=== PATIENT | female | born 1995 | race Caucasian/White ===

== ENCOUNTER 2018-04-23 18:58 | Emergency (ER) | payer OTHER ==
--- NOTE | 2018-04-23 20:16 | ERPHSYRPT ---
- History of Present Illness Time Seen by Provider: 04/23/18 20:04 Historian: patient Exam Limitations: no limitations Patient Subjective Stated Complaint: Abdominal pain Triage Nursing Assessment: Patient ambulated back to ED and transferred self to bed. Patient A+O X 3. Patient's skin pink, warm and dry. Patient states she started having abdominal pain around 1300 that was constant and felt like bad cramps 6/10. Patient states she is also bloated. Patient denies diarrhea or vomiting, but is nauseaous at times. Abdomen round and distended with BS x4. Lungs noted to be clear a/p jordan. Heart tones WNL. Physician History: The patient is a 22-year-old female with her boyfriend complaining of right lower quadrant and periumbilical abdominal pain that began around 1 PM today. It feels like a constant cramping. About a 6 out of 10 pain. She finished her last menstrual period last week. She takes control pills but has not started taking them again after her last menstrual period. She has felt nauseated. She denies vomiting or diarrhea. She denies fever. She has taken 2 Advil to help ease the pain. Her past medical history is significant for depression. She denies any abdominal surgeries. Pt last ate at 2 PM. Timing/Duration: today, hour(s) (7), gradual onset, worse Activities at Onset: none Quality: cramping Abdominal Pain Onset Location: RLQ, periumbilical Pain Radiation: no radiation Severity of Pain-Max: moderate Severity of Pain-Current: moderate Modifying Factors: Improves With: analgesics Associated Symptoms: nausea, No diarrhea, No fever/chills, No heartburn, No vomiting, No weakness Previous symptoms: no prior history Allergies/Adverse Reactions: No Known Drug Allergies Allergy (Unverified 04/23/18 19:19) Home Medications: Citalopram Hydrobromide 20 mg* [ceLEXa 20 MG] 1 tab PO HS 04/23/18 [History] Hx Influenza Vaccination/Date Given: Yes Hx Pneumococcal Vaccination/Date Given: No Immunizations Up to Date: Yes - Review of Systems Constitutional: No Symptoms Eyes: No Symptoms Ears, Nose, & Throat: No Symptoms Respiratory: No Cough, No Dyspnea Cardiac: No Chest Pain, No Edema, No Syncope Abdominal/Gastrointestinal: Abdominal Pain, Nausea, No Vomiting, No Diarrhea Genitourinary Symptoms: No Dysuria Musculoskeletal: No Back Pain, No Neck Pain Skin: No Rash Neurological: No Dizziness, No Focal Weakness, No Sensory Changes Psychological: No Symptoms Endocrine: No Symptoms Hematologic/Lymphatic: No Symptoms Immunological/Allergic: No Symptoms All Other Systems: Reviewed and Negative - Past Medical History Pertinent Past Medical History: No Neurological History: No Pertinent History ENT History: No Pertinent History Cardiac History: No Pertinent History Respiratory History: No Pertinent History Endocrine Medical History: No Pertinent History Musculoskeletal History: No Pertinent History GI Medical History: No Pertinent History History: No Pertinent History Psycho-Social History: No Pertinent History Female Reproductive Disorders: No Pertinent History - Past Surgical History Past Surgical History: No Neuro Surgical History: No Pertinent History Cardiac: No Pertinent History Respiratory: No Pertinent History Gastrointestinal: No Pertinent History Genitourinary: No Pertinent History Musculoskeletal: No Pertinent History Female Surgical History: No Pertinent History - Social History Smoking Status: Current every day smoker How long have you smoked: 9 Exposure to second hand smoke: No Drug Use: none Patient Lives Alone: No - Female History Hx Last Menstrual Period: Ended last Hx Now: No - Nursing Vital Signs Nursing Vital Signs: Initial Vital Signs Temperature 97.9 F 04/23/18 19:06 Pulse Rate 82 04/23/18 19:06 Respiratory Rate 18 04/23/18 19:06 Blood Pressure 157/100 04/23/18 19:06 O2 Sat by Pulse Oximetry 100 04/23/18 19:06 Pain Scale Pain Intensity 4 - Physical Exam General Appearance: no apparent distress, alert Eye Exam: PERRL/EOMI, eyes nml inspection Ears, Nose, Throat Exam: normal ENT inspection, pharynx normal, moist mucous membranes Neck Exam: normal inspection, non-tender, supple, full range of motion Respiratory Exam: normal breath sounds, lungs clear, No respiratory distress Cardiovascular Exam: regular rate/rhythm, normal heart sounds Gastrointestinal/Abdomen Exam: tenderness (periumbical and RLQ) Pelvic Exam: not done Rectal Exam: not done Back Exam: normal inspection, normal range of motion, No CVA tenderness, No vertebral tenderness Extremity Exam: normal inspection, normal range of motion, pelvis stable Neurologic Exam: alert, oriented x 3, cooperative, normal mood/affect, nml cerebellar function, sensation nml, No motor deficits Skin Exam: normal color, warm, dry SpO2 Interpretation: normal SpO2: 100 O2 Delivery: Room Air - CT Exams Abdomen/Pelvis CT Interpretation: Tele-radiologist Report (per Dr Hicks), appendicitis ( prominent appendix with fat stranding) Ordered Tests: Active Orders 24 hr Category Date Time Status Clean Catch Urine Specimen STAT Care 04/23/18 20:20 Active IV Insertion STAT Care 04/23/18 20:20 Active ABDOMEN AND PELVIS W/0 CONTRAS [CT] Stat Exams 04/23/18 21:14 Taken CBC W DIFF Stat Lab 04/23/18 20:00 Completed CMP Stat Lab 04/23/18 20:00 Completed HCG QUALITATIVE,SERUM Stat Lab 04/23/18 20:00 Completed LIPASE Stat Lab 04/23/18 20:00 Completed Lactic Acid Stat Lab 04/23/18 20:38 Completed UA W/RFX UR CULTURE Stat Lab 04/23/18 19:45 Completed Urine Triage Profile Stat Lab 04/23/18 19:45 Completed Medication Summary Discontinued Medications Generic Name Dose Route Start Last Admin Trade Name Freq PRN Reason Stop Dose Admin Acetaminophen 975 mg 04/23/18 20:20 04/23/18 20:53 Tylenol 325 Mg PO 04/23/18 20:21 975 mg STAT ONE Administration Acetaminophen Confirm 04/23/18 20:44 Tylenol 325 Mg Administered 04/23/18 20:45 Dose 975 mg .ROUTE .STK-MED ONE Sodium Chloride 1,000 mls @ 999 mls/hr 04/23/18 20:20 04/23/18 20:49 Sodium Chloride 0.9% 1000 Ml IV 04/23/18 21:20 999 mls/hr .Q1H1M STA Administration Sodium Chloride Confirm 04/23/18 20:44 Sodium Chloride 0.9% 1000 Ml Administered 04/23/18 20:45 Dose 1,000 mls @ ud .ROUTE .STK-MED ONE Ondansetron HCl 4 mg 04/23/18 20:20 04/23/18 20:54 Zofran 4 Mg/2 Ml Vial IV 04/23/18 20:21 4 mg STAT ONE Administration Ondansetron HCl Confirm 04/23/18 20:44 Zofran 4 Mg/2 Ml Vial Administered 04/23/18 20:45 Dose 4 mg .ROUTE .STK-MED ONE Lab/Rad Data: Laboratory Result Diagrams 04/23/18 20:00 04/23/18 20:00 Laboratory Results 04/23/18 04/23/18 04/23/18 Range/Units 20:38 20:00 20:00 WBC (4.0-10.5) K/mm3 RBC (4.1-5.4) M/mm3 Hgb (12.0-16.0) gm/dl Hct (35-47) % MCV (78-100) fl MCH (26-32) pg MCHC (32-36) g/dl RDW (11.5-14.0) % Plt Count (150-450) K/mm3 MPV (6-9.5) fl Gran % (36.0-66.0) % Eos # (Auto) (0-0.5) Absolute Lymphs (auto) (1.0-4.6) Absolute Monos (auto) (0.0-1.3) Lymphocytes % (24.0-44.0) % Monocytes % (0.0-12.0) % Eosinophils % (0.00-5.0) % Basophils % (0.0-0.4) % Absolute Granulocytes (1.4-6.9) Basophils # (0-0.4) Sodium 140 (137-145) mmol/L Potassium 4.0 (3.5-5.1) mmol/L Chloride 103 (98-107) mmol/L Carbon Dioxide 28 (22-30) mmol/L Anion Gap 12.5 (5-15) MEQ/L BUN 9 (7-17) mg/dL Creatinine 0.65 (0.52-1.04) mg/dL Estimated GFR > 60.0 ML/MIN Glucose 95 (74-106) mg/dL Lactic Acid 0.8 (0.4-2.0) Calcium 10.2 (8.4-10.2) mg/dL Total Bilirubin 0.50 (0.2-1.3) mg/dL AST 39 H (14-36) U/L ALT 28 (0-35) U/L Alkaline Phosphatase 69 (38-126) U/L Serum Total Protein 7.7 (6.3-8.2) g/dL Albumin 4.6 (3.5-5.0) g/dL Lipase 94 (23-300) U/L Serum , Qual NEGATIVE (Negative) Urine Color (YELLOW) Urine Appearance (CLEAR) Urine pH (5-6) Ur Specific [place] (1.005-1.025) Urine Protein (Negative) Urine Ketones (NEGATIVE) Urine Blood (0-5) Lexa/ul Urine Nitrite (NEGATIVE) Urine Bilirubin (NEGATIVE) Urine Urobilinogen (0-1) mg/dL Ur Leukocyte Esterase (NEGATIVE) Urine WBC (Auto) (0-5) /HPF Urine RBC (Auto) (0-2) /HPF U Epithel Cells (Auto) (FEW) /HPF Urine Bacteria (Auto) (NEGATIVE) /HPF Other Casts (Auto) (NEGATIVE) /LPF Urine Mucus (Auto) (NEGATIVE) /HPF Urine Culture Reflexed (NO) Urine Glucose (NEGATIVE) mg/dL Urine Opiates Level (NEGATIVE) Ur Methadone (NEGATIVE) Urine Barbiturates (NEGATIVE) Ur Phencyclidine (PCP) (NEGATIVE) Urine Amphetamine (NEGATIVE) U Benzodiazepine Level (NEGATIVE) Urine Cocaine (NEGATIVE) Urine Marijuana (THC) (NEGATIVE) 04/23/18 04/23/18 04/23/18 Range/Units 20:00 19:45 19:45 WBC 14.5 H (4.0-10.5) K/mm3 RBC 4.06 L (4.1-5.4) M/mm3 Hgb 13.1 (12.0-16.0) gm/dl Hct 39.9 (35-47) % MCV 98.3 (78-100) fl MCH 32.2 H (26-32) pg MCHC 32.8 (32-36) g/dl RDW 12.0 (11.5-14.0) % Plt Count 216 (150-450) K/mm3 MPV 12.4 H (6-9.5) fl Gran % 77.3 H (36.0-66.0) % Eos # (Auto) 0.23 (0-0.5) Absolute Lymphs (auto) 2.38 (1.0-4.6) Absolute Monos (auto) 0.65 (0.0-1.3) Lymphocytes % 16.5 L (24.0-44.0) % Monocytes % 4.5 (0.0-12.0) % Eosinophils % 1.6 (0.00-5.0) % Basophils % 0.1 (0.0-0.4) % Absolute Granulocytes 11.17 H (1.4-6.9) Basophils # 0.02 (0-0.4) Sodium (137-145) mmol/L Potassium (3.5-5.1) mmol/L Chloride (98-107) mmol/L Carbon Dioxide (22-30) mmol/L Anion Gap (5-15) MEQ/L BUN (7-17) mg/dL Creatinine (0.52-1.04) mg/dL Estimated GFR ML/MIN Glucose (74-106) mg/dL Lactic Acid (0.4-2.0) Calcium (8.4-10.2) mg/dL Total Bilirubin (0.2-1.3) mg/dL AST (14-36) U/L ALT (0-35) U/L Alkaline Phosphatase (38-126) U/L Serum Total Protein (6.3-8.2) g/dL Albumin (3.5-5.0) g/dL Lipase (23-300) U/L Serum , Qual (Negative) Urine Color STRAW (YELLOW) Urine Appearance CLEAR (CLEAR) Urine pH 7.0 (5-6) Ur Specific [place] 1.005 (1.005-1.025) Urine Protein NEGATIVE (Negative) Urine Ketones NEGATIVE (NEGATIVE) Urine Blood NEGATIVE (0-5) Lexa/ul Urine Nitrite NEGATIVE (NEGATIVE) Urine Bilirubin NEGATIVE (NEGATIVE) Urine Urobilinogen NEGATIVE (0-1) mg/dL Ur Leukocyte Esterase NEGATIVE (NEGATIVE) Urine WBC (Auto) NONE (0-5) /HPF Urine RBC (Auto) NONE (0-2) /HPF U Epithel Cells (Auto) RARE (FEW) /HPF Urine Bacteria (Auto) FEW (NEGATIVE) /HPF Other Casts (Auto) NEGATIVE (NEGATIVE) /LPF Urine Mucus (Auto) SLIGHT (NEGATIVE) /HPF Urine Culture Reflexed NO (NO) Urine Glucose NEGATIVE (NEGATIVE) mg/dL Urine Opiates Level NEGATIVE (NEGATIVE) Ur Methadone NEGATIVE (NEGATIVE) Urine Barbiturates NEGATIVE (NEGATIVE) Ur Phencyclidine (PCP) NEGATIVE (NEGATIVE) Urine Amphetamine NEGATIVE (NEGATIVE) U Benzodiazepine Level NEGATIVE (NEGATIVE) Urine Cocaine NEGATIVE (NEGATIVE) Urine Marijuana (THC) NEGATIVE (NEGATIVE) - Progress Progress: improved Progress Note: 04/23/18 21:53 Pt wishes to be transferred to [facility] for appendectomy. 04/23/18 22:[address] De La Cruz at [facility] for acceptance. Counseled pt/family regarding: rad results - Departure Time of Disposition: 21:44 Departure Disposition: Transfer (transfer to [facility] ER per Dr De La Cruz) Clinical Impression: Acute appendicitis Condition: Stable Critical Care Time: No Referrals: BRANDIN MARTÍNEZ [Primary Care Provider] -
[2018-04-23] MEDS ORDERED: Zofran 4 MG/2 ML VIAL IV ONE (20:20)
[2018-04-23] MEDS ORDERED: TYLENOL 325 MG PO ONE (20:20)
[2018-04-23] MEDS ORDERED: Sodium Chloride 0.9% 1000 ML 1,000 ML IV STA (20:20)
[2018-04-23 20:34] LABS: BASOPHIL % 0.1 % (0.0-0.4); Basophil (Absolute #) 0.02 (0-0.4); Eosinophil % 1.6 % (0.00-5.0); Eosinophil (Absolute #) 0.23 (0-0.5); Granulocyte Absolute (ANC) 11.17 (1.4-6.9); Granulocytes % 77.3 % (36.0-66.0); Hematocrit 39.9 % (35-47); Hemoglobin 13.1 gm/dl (12.0-16.0); Lymphocyte (Absolute #) 2.38 (1.0-4.6); Lymphocytes % 16.5 % (24.0-44.0); Mean Cell Volume 98.3 fl (78-100); Mean Corpuscular Hgb Concent. 32.8 g/dl (32-36); Mean Platelet Volume 12.4 fl (6-9.5); Monocyte (Absolute #) 0.65 (0.0-1.3); Monocytes % 4.5 % (0.0-12.0); Platelet Count 216 K/mm3 (150-450); Red Blood Count 4.06 M/mm3 (4.1-5.4); White Blood Count 14.5 K/mm3 (4.0-10.5)
[2018-04-23 20:40] LABS: ALBUMIN 4.6 g/dL (3.5-5.0); ALKALINE PHOSPHATASE 69 U/L (38-126); ANION GAP 12.5 MEQ/L (5-15); BLOOD UREA NITROGEN 9 mg/dL (7-17); CHLORIDE 103 mmol/L (98-107); Calcium 10.2 mg/dL (8.4-10.2); Carbon Dioxide 28 mmol/L (22-30); Creatinine 1 0.65 mg/dL (0.52-1.04); Glucose 95 mg/dL (74-106); LIPASE 94 U/L (23-300); SGOT/AST 39 U/L (14-36); SGPT/ALT 28 U/L (0-35); SODIUM 140 mmol/L (137-145); Total Protein 7.7 g/dL (6.3-8.2)
[2018-04-23 20:42] LABS: Mean Corpuscular Hemoglobin 32.2 pg (26-32)
[2018-04-23] MEDS ORDERED: Sodium Chloride 0.9% 1000 ML 1,000 ML ONE ×2 (20:44→21:59)
[2018-04-23] MEDS ORDERED: TYLENOL 325 MG ONE (20:44)
[2018-04-23] MEDS ORDERED: Zofran 4 MG/2 ML VIAL ONE (20:44)
[2018-04-23 21:00] LABS: Appearance CLEAR (CLEAR); Bacteria FEW /HPF (NEGATIVE); Bilirubin NEGATIVE (NEGATIVE); Blood NEGATIVE Ery/ul (0-5); Epithelial Cells RARE /HPF (FEW); Glucose NEGATIVE (NEGATIVE); Ketones NEGATIVE (NEGATIVE); Leukocyte Esterase NEGATIVE (NEGATIVE); Mucus SLIGHT /HPF (NEGATIVE); Nitrite NEGATIVE (NEGATIVE); Protein,Urine Dip NEGATIVE (Negative); Specific Gravity 1.005 (1.005-1.025); Urobilinogen NEGATIVE mg/dL (0-1)
[2018-04-23 21:05] LABS: Amphetamine,Urine NEGATIVE (NEGATIVE); Barbiturate,Urine NEGATIVE (NEGATIVE); Benzodiazepine,Urine NEGATIVE (NEGATIVE); Cocaine,Urine NEGATIVE (NEGATIVE); Methadone,Urine NEGATIVE (NEGATIVE); Opiate,Urine NEGATIVE (NEGATIVE); PCP,Urine NEGATIVE (NEGATIVE); THC,Urine NEGATIVE (NEGATIVE)
[2018-04-23] MEDS ORDERED: TORAdol 30 mg Injection IV ONE (21:52)
[2018-04-23] MEDS ORDERED: Unasyn 1.5GM / NaCl 100ML 1.5 GM/100 ML IVPB IV STA (21:52)
[2018-04-23] MEDS ORDERED: Unasyn 1.5GM / NaCl 100ML 1.5 GM/100 ML IVPB ONE (21:59)
[2018-04-23] MEDS ORDERED: TORAdol 30 mg Injection ONE (21:59)
[2018-04-23] MEDS ORDERED: Sodium Chloride 0.9% 1000 ML 1,000 ML IV SCH (22:15)
[2018-04-23 22:39] VITALS: BP 133/91; PULSE 65; O2SAT 96
--- NOTE | 2018-04-24 09:08 | XRAY ---
Indication: Right lower quadrant pain. Elevated WBC. Multiple contiguous axial images obtained through the abdomen and pelvis without contrast as ordered. Comparison: None Lung bases demonstrates left base calcified granuloma. No infiltrate or effusion. Heart is not enlarged. Noncontrasted stomach and bowel loops appear nonobstructed. Appendix is prominent up to 10-11 mm with periappendiceal stranding consistent with acute appendicitis. No free fluid/air. Mild diffuse scattered colonic fecal debris throughout. Remaining liver, gallbladder, pancreas, spleen, adrenal glands, kidneys, ureters, bladder, uterus, and aorta appear unremarkable for noncontrast exam. Osseous structures intact. Impression: 1. CT findings favoring acute appendicitis. No complications. 2. Incidental fecal stasis. CTDI 9.17
== END 2018-04-23 22:50 | disposition short-term general hospital (02) ==
LOC: ED 18:58
DX: K35.80 Unspecified acute appendicitis (principal); F32.9 Major depressive disorder, single episode, unspecified; Z79.899 Other long term (current) drug therapy; R10.9 Unspecified abdominal pain; Z79.3 Long term (current) use of hormonal contraceptives; R10.31 Right lower quadrant pain; R11.0 Nausea; F17.200 Nicotine dependence, unspecified, uncomplicated
CPT/HCPCS: 36000; 36415; 74176; 80053; 80307; 81001; 81025; 83605; 83690; 85025; 96360; 96361; 96365; 96374; 96375; 99285; J0295; J1885; J2405; A9270-GY

== ENCOUNTER → 2019-04-05 | Emergency (ER) | payer BC, OTHER | END | disposition left against medical advice (07) | LOC: ED 18:15 | DX: Z53.9 Procedure and treatment not carried out, unspecified reason (principal) | CPT/HCPCS: 99281 ==

== ENCOUNTER 2022-05-10 23:17 | Emergency (ER) | payer OTHER ==
[2022-05-10] MEDS ORDERED: TORAdol 30 mg Injection IV ONE (23:42)
[2022-05-10] MEDS ORDERED: Zofran 4 MG/2 ML VIAL IV ONE (23:42)
[2022-05-10] MEDS ORDERED: Sodium Chloride 0.9% 1000 ML 1,000 ML IV STA (23:42)
[2022-05-10] MEDS ORDERED: MORPHINE SULFATE 2 MG INJ ONE (23:46)
[2022-05-10] MEDS ORDERED: TORAdol 30 mg Injection ONE (23:46)
[2022-05-10] MEDS ORDERED: Sodium Chloride 0.9% 1000 ML 1,000 ML ONE (23:46)
[2022-05-10] MEDS ORDERED: Zofran 4 MG/2 ML VIAL ONE (23:46)
--- NOTE | 2022-05-10 23:46 | ERPHSYRPT ---
- History of Present Illness Time Seen by Provider: 05/10/22 23:39 Source: patient Exam Limitations: no limitations Patient Subjective Stated Complaint: epigastric pain since 2129 Triage Nursing Assessment: pt ambulatory to bed by self, alert and oriented x3, skin pwd, pt c/o epigastric pain since about 2129, describes the pain as cramping, pt last ate at 1830, pt states she had greasy bar food and her pain started a couple hours after, denies nausea, pt states she "made" herself vomit to see if she would feel better, last BM was today Physician History: Patient here with abdominal pain starting earlier tonight. Patient states that she was out drinking and developed some epigastric pain after eating greasy food . No falls or trauma. Patient does not believe that she is . Patient states that she has already had her appendix out. All pain is epigastric, does not radiate. No nausea or vomiting. No fever no chills. No systemic signs of illness no other recent symptoms. Allergies/Adverse Reactions: No Known Drug Allergies Allergy (Verified 05/10/22 23:27) Home Medications: Citalopram Hydrobromide 20 mg* [ceLEXa 20 MG] 1 tab PO HS 04/23/18 [History] Hx Tetanus, Diphtheria Vaccination/Date Given: Yes Hx Influenza Vaccination/Date Given: No Hx Pneumococcal Vaccination/Date Given: No Immunizations Up to Date: Yes Travel Risk - International Travel Have you traveled outside of the country in past 3 weeks: No - Coronavirus Screening Are you exhibiting any of the following symptoms?: No Close contact with a COVID-19 positive Pt in past 14-21 Days: No - Vaccine Status Have you recieved a Covid-19 vaccination: No - Review of Systems Constitutional: No Fever, No Chills Eyes: No Symptoms Ears, Nose, & Throat: No Symptoms Respiratory: No Cough, No Dyspnea Cardiac: No Chest Pain, No Edema, No Syncope Abdominal/Gastrointestinal: Abdominal Pain, No Nausea, No Vomiting, No Diarrhea Genitourinary Symptoms: No Dysuria Musculoskeletal: No Back Pain, No Neck Pain Skin: No Rash Neurological: No Dizziness, No Focal Weakness, No Sensory Changes Psychological: No Symptoms Endocrine: No Symptoms All Other Systems: Reviewed and Negative - Past Medical History Pertinent Past Medical History: No Neurological History: No Pertinent History ENT History: No Pertinent History Cardiac History: No Pertinent History Respiratory History: No Pertinent History Endocrine Medical History: No Pertinent History Musculoskeletal History: No Pertinent History GI Medical History: No Pertinent History History: No Pertinent History Psycho-Social History: No Pertinent History Female Reproductive Disorders: No Pertinent History - Past Surgical History Past Surgical History: Yes Neuro Surgical History: No Pertinent History Cardiac: No Pertinent History Respiratory: No Pertinent History Gastrointestinal: Appendectomy Genitourinary: No Pertinent History Musculoskeletal: No Pertinent History Female Surgical History: No Pertinent History - Social History Smoking Status: Never smoker How long have you smoked: 9 Exposure to second hand smoke: No Drug Use: none Patient Lives Alone: Yes - Female History Hx Last Menstrual Period: 04/26/22 Hx Now: No - Nursing Vital Signs Nursing Vital Signs: Initial Vital Signs Temperature 97.6 F 05/10/22 23:27 Pulse Rate 94 H 05/10/22 23:27 Respiratory Rate 18 05/10/22 23:27 Blood Pressure 152/124 05/10/22 23:27 O2 Sat by Pulse Oximetry 99 05/10/22 23:27 Pain Scale Pain Intensity 7 - Physical Exam General Appearance: no apparent distress, alert Eye Exam: PERRL/EOMI, eyes nml inspection Ears, Nose, Throat Exam: normal ENT inspection, TMs normal, pharynx normal, moist mucous membranes Neck Exam: normal inspection, non-tender, supple, full range of motion Respiratory Exam: normal breath sounds, lungs clear, No respiratory distress Cardiovascular Exam: regular rate/rhythm, normal heart sounds, normal peripheral pulses Gastrointestinal/Abdomen Exam: soft, tenderness, other (Midepigastric tenderness without rebound or guarding), No mass Back Exam: normal inspection, normal range of motion, No CVA tenderness, No vertebral tenderness Extremity Exam: normal inspection, normal range of motion, pelvis stable Neurologic Exam: alert, oriented x 3, cooperative, normal mood/affect, nml cerebellar function, nml station & gait, sensation nml, No motor deficits Skin Exam: normal color, warm, dry, No rash Lymphatic Exam: No adenopathy SpO2: 99 - Course Nursing assessment & vital signs reviewed: Yes Ordered Tests: Active Orders 24 hr Category Date Time Status IV Insertion STAT Care 05/10/22 23:42 Active CBC W DIFF Stat Lab 05/10/22 23:54 Completed CMP Stat Lab 05/10/22 23:54 Completed ETHYL ALCOHOL Stat Lab 05/10/22 23:54 Completed HCG QUALITATIVE,SERUM Stat Lab 05/10/22 23:54 Completed LIPASE Stat Lab 05/10/22 23:54 Completed UA W/RFX UR CULTURE Stat Lab 05/10/22 23:44 Received Medication Summary Generic Name Dose Route Start Last Admin Trade Name Edith PRN Reason Stop Dose Admin Sodium Chloride 1,000 mls @ 999 mls/hr 05/10/22 23:42 05/10/22 23:48 Sodium Chloride 0.9% 1000 Ml IV 05/11/22 00:42 999 mls/hr .Q1H1M STA Administration Discontinued Medications Generic Name Dose Route Start Last Admin Trade Name Gustavoq PRN Reason Stop Dose Admin Sodium Chloride Confirm 05/10/22 23:46 Sodium Chloride 0.9% 1000 Ml Administered 05/10/22 23:47 Dose 1,000 mls @ ud .ROUTE .STK-MED ONE Ketorolac Tromethamine 30 mg 05/10/22 23:42 05/10/22 23:48 Ketorolac Tromethamine 30 Mg/Ml Inj IV 05/10/22 23:43 30 mg STAT ONE Administration Ketorolac Tromethamine Confirm 05/10/22 23:46 Ketorolac Tromethamine 30 Mg/Ml Inj Administered 05/10/22 23:47 Dose 30 mg .ROUTE .STK-MED ONE Morphine Sulfate 2 mg 05/10/22 23:42 05/10/22 23:54 Morphine Sulfate 2 Mg/Ml Inj IV 05/10/22 23:43 Not Given STAT ONE Morphine Sulfate Confirm 05/10/22 23:46 Morphine Sulfate 2 Mg/Ml Inj Administered 05/10/22 23:47 Dose 2 mg .ROUTE .STK-MED ONE Ondansetron HCl 4 mg 05/10/22 23:42 05/10/22 23:48 Ondansetron Hcl 4 Mg/2 Ml Vial IV 05/10/22 23:43 4 mg STAT ONE Administration Ondansetron HCl Confirm 05/10/22 23:46 Ondansetron Hcl 4 Mg/2 Ml Vial Administered 05/10/22 23:47 Dose 4 mg .ROUTE .STK-MED ONE Lab/Rad Data: Laboratory Result Diagrams 05/10/22 23:54 05/10/22 23:54 Laboratory Results 05/10/22 05/10/22 05/10/22 Range/Units 23:54 23:54 23:54 WBC 6.3 (4.0-10.5) x10^3/uL RBC 3.96 L (4.1-5.4) x10^6/uL Hgb 12.2 (12.0-16.0) g/dL Hct 37.0 (35-47) % MCV 93.4 (78-100) fL MCH 30.8 (26-32) pg MCHC 33.0 (32-36) g/dL RDW 11.3 L (11.5-14.0) % Plt Count 223 (150-450) x10^3/uL MPV 11.0 (7.5-11.0) fL Gran % 58.2 (36.0-66.0) % Immature Gran % (Auto) 0.3 (0.00-0.4) % Nucleat RBC Rel Count 0.0 (0.00-0.1) % Eos # (Auto) 0.08 (0-0.5) x10^3/uL Immature Gran # (Auto) 0.02 (0.00-0.03) x10^3u/L Absolute Lymphs (auto) 2.31 (1.0-4.6) x10^3/uL Absolute Monos (auto) 0.19 (0.0-1.3) x10^3/uL Absolute Nucleated RBC 0.00 (0.00-0.01) x10^3u/L Lymphocytes % 36.7 (24.0-44.0) % Monocytes % 3.0 (0.0-12.0) % Eosinophils % 1.3 (0.00-5.0) % Basophils % 0.5 (0.0-0.4) % Absolute Granulocytes 3.67 (1.4-6.9) x10^3/uL Basophils # 0.03 (0-0.4) x10^3/uL Sodium 142 (137-145) mmol/L Potassium 3.5 (3.5-5.1) mmol/L Chloride 105 (98-107) mmol/L Carbon Dioxide 28 (22-30) mmol/L Anion Gap 12.5 (5-15) MEQ/L BUN 6 L (7-17) mg/dL Creatinine 0.49 L (0.52-1.04) mg/dL Estimated GFR > 60.0 ML/MIN Glucose 92 (74-106) mg/dL Calcium 8.7 (8.4-10.2) mg/dL Total Bilirubin 0.20 (0.2-1.3) mg/dL AST 30 (14-36) U/L ALT 30 (0-35) U/L Alkaline Phosphatase 54 (38-126) U/L Serum Total Protein 7.3 (6.3-8.2) g/dL Albumin 4.3 (3.5-5.0) g/dL Lipase 149 (23-300) U/L Serum , Qual NEGATIVE (Negative) Ethyl Alcohol 194 H (0-10) mg/dL - Progress Progress: improved Progress Note: 05/10/22 23:46 differential diagnosis includes kidney stone, compression fracture, infection, UTI, triple AAA, biliary colic - basic labs including: CBC, lipase, CMP, UA, test - insert IV for fluids, pain meds, nausea control - consider imaging: CT ab/pelvis 05/11/22 00:26 Patient feels improved with medication here. Patient is not . Patient has no leukocytosis, elevation of her liver enzymes. Patient may be having biliary colic without acute cholecystitis tonight. On reexam pain is improved. Patient's alcohol is also 194. She may have a component of alcohol gastritis. Patient states that she stopped drinking several hours ago and only had 5 drinks. However when I went over her alcohol being double the legal limit, patient did state that maybe she did consume more alcohol than she thought. Patient also did several different shots. Given this I did discuss potential alcohol abuse with the mom and the patient. She may be ingesting more than she realizes. We will give omeprazole to go home with for possible alcoholic gastritis. Patient return here sooner for any new or changing symptoms. They may consider ultrasound as an outpatient for further evaluation of gallbladder disease. They can see the PCP for this. Counseled pt/family regarding: lab results, diagnosis, need for follow-up - Departure Departure Disposition: Home Clinical Impression: Epigastric abdominal pain, Gastritis Condition: Stable Critical Care Time: No Referrals: BRANDIN MARTÍNEZ NP [Primary Care Provider] - Follow up/PCP as directed Instructions: Severe Abdominal Pain, Adult (DC) Additional Instructions: He may follow-up with her PCP for abdominal reexam in 2 to 3 days. You should consider an outpatient ultrasound if you continue to have intermittent pain. Y ou may return here sooner for any new or changing symptoms. Otherwise, take omeprazole daily for gastritis. Return here sooner should anything change Prescriptions: Omeprazole 20 mg PO DAILY #30 cap
[2022-05-10] MEDS: MORPHINE SULFATE 2 MG INJ IV ONE ×2 (23:49→23:54)
[2022-05-10 23:56] LABS: Absolute Neutrophil Ct (ANC) 3.67 x10^3/uL (1.4-6.9); BASOPHIL % 0.5 % (0.0-0.4); Basophil (Absolute #) 0.03 x10^3/uL (0-0.4); Eosinophil % 1.3 % (0.00-5.0); Eosinophil (Absolute #) 0.08 x10^3/uL (0-0.5); Hemoglobin 12.2 g/dL (12.0-16.0); IMMATURE GRAN # 0.02 x10^3u/L (0.00-0.03); IMMATURE GRAN % 0.3 % (0.00-0.4); Lymphocyte (Absolute #) 2.31 x10^3/uL (1.0-4.6); Lymphocytes % 36.7 % (24.0-44.0); Mean Cell Volume 93.4 fL (78-100); Mean Corpuscular Hemoglobin 30.8 pg (26-32); Monocyte (Absolute #) 0.19 x10^3/uL (0.0-1.3); Neutrophil % 58.2 % (36.0-66.0); Platelet Count 223 x10^3/uL (150-450); Red Blood Count 3.96 x10^6/uL (4.1-5.4); Red Cell Distribution Width 11.3 % (11.5-14.0); White Blood Count 6.3 x10^3/uL (4.0-10.5)
[2022-05-11 00:08] LABS: ALBUMIN 4.3 g/dL (3.5-5.0); ALKALINE PHOSPHATASE 54 U/L (38-126); ANION GAP 12.5 MEQ/L (5-15); BLOOD UREA NITROGEN 6 mg/dL (7-17); CHLORIDE 105 mmol/L (98-107); Calcium 8.7 mg/dL (8.4-10.2); Carbon Dioxide 28 mmol/L (22-30); Creatinine 1 0.49 mg/dL (0.52-1.04); EST GLOMERULAR FILTRATION RATE > 60.0 ML/MIN; ETHYL ALCOHOL 194 mg/dL (0-10); Glucose 92 mg/dL (74-106); LIPASE 149 U/L (23-300); Potassium 3.5 mmol/L (3.5-5.1); SGOT/AST 30 U/L (14-36); SGPT/ALT 30 U/L (0-35); SODIUM 142 mmol/L (137-145); Total Protein 7.3 g/dL (6.3-8.2)
[2022-05-11 00:25] VITALS: O2SAT 99
[2022-05-11 00:27] LABS: Appearance Clear (Clear); Bacteria None Seen /HPF (None Seen); Bilirubin Negative (Negative); Blood Negative (Negative); Epithelial Cells None Seen /HPF (None Seen); Glucose, Urine Negative (Negative); Hyaline Casts NONE SEEN /LPF (0-2); Ketones Negative (Negative); Leukocyte Esterase Negative (Negative); Nitrite Negative (Negative); Protein,Urine Dip Negative (Negative); RBC 0-2 /HPF (0-5); Specific Gravity <=1.005 (1.005-1.030); Urobilinogen 0.2 mg/dL (0.2); WBC 0-2 /HPF (0-5)
[2022-05-11 00:28] LABS: ADD URINE CULTURE? NO (NO)
[2022-05-11 00:38] VITALS: BP 140/96; PULSE 85
== END 2022-05-11 00:38 | disposition home or self-care (01) ==
LOC: ED 23:17
DX: K29.70 Gastritis, unspecified, without bleeding (principal); R10.13 Epigastric pain; Z79.899 Other long term (current) drug therapy; Z28.310 Unvaccinated for COVID-19
CPT/HCPCS: 36000; 36415; 80053; 81001; 83690; 84703; 85025; 96374; 99284; G0480; 80307; 96375; J1885; J2270; J2405